=== PATIENT | female | born 1960 | race Caucasian/White ===

== ENCOUNTER 2021-02-06 15:24 | Emergency (ER) | payer BC, OTHER ==
[2021-02-06 15:36] VITALS: BP 120/72; PULSE 64; TEMP 98.4; BMI 25.6
== END 2021-02-06 16:41 | disposition home or self-care (01) ==
LOC: JERFT 15:24
PROC: 0HQFXZZ Repair Right Hand Skin, External Approach (ICD-10-PCS; principal; 2021-02-06)
DX: S61.210A Laceration without foreign body of right index finger without damage to nail, initial encounter (principal); W26.8XXA Contact with other sharp object(s), not elsewhere classified, initial encounter
CPT/HCPCS: 12001-25; 99282-25

== ENCOUNTER 2024-03-17 04:07 | Day surgery (SDC) | payer OTHER ==
[2024-02-29 12:58] VITALS: BMI 25.6
[2024-03-17] MEDS ORDERED: PROPOFOL 20 ML ONE (11:01)
[2024-03-17] MEDS ORDERED: ROCURONIUM BROMIDE 50 MG/5 ML SYRINGE ONE (11:02)
[2024-03-17] MEDS ORDERED: MIDAZOLAM HCL 2 MG/2 ML SINGLE DOSE VIAL ONE (11:03)
[2024-03-17] MEDS ORDERED: ONDANSETRON 4 MG/2 ML VIAL ONE ×2 (11:05→13:32)
[2024-03-17] MEDS ORDERED: KETOROLAC TROMETHAMINE 30 MG/1 ML VIAL ONE (11:05)
[2024-03-17] MEDS ORDERED: DEXAMETHASONE SOD PHOSPHATE 4 MG/1 ML VIAL ONE (11:05)
[2024-03-17] MEDS: ceFAZolin SODIUM 1 GM VIAL IVPB ONE (11:38)
[2024-03-17] MEDS ORDERED: GLYCOPYRROLATE 0.2 MG/1 ML VIAL ONE (13:08)
[2024-03-17] MEDS ORDERED: NEOSTIGMINE METHYLSULFATE 0.5 MG/1 ML - 10 ML MDV ONE (13:08)
[2024-03-17] MEDS ORDERED: SUGAMMADEX SODIUM 200 MG/2 ML VIAL ONE (14:32)
[2024-03-17] MEDS ORDERED: ONDANSETRON 4 MG/2 ML VIAL IVPUSH PRN (14:46)
[2024-03-17] MEDS ORDERED: oxyCODONE HCL 5 MG TABLET PO PRN (14:54)
[2024-03-17] MEDS: SODIUM CHLORIDE 1,000 ML IV SCH (15:18)
[2024-03-17] MEDS: CEFAZOLIN SODIUM 2 GM in DEXTROSE 5%-WATER 100 ML IVPB ONE (15:18)
[2024-03-17] MEDS: IBUPROFEN 600 MG TABLET (FP) PO PRN (19:11)
[2024-03-17 19:27] LABS: HEMOGLOBIN 12.4 GM/dL (10.7-15.3); MCH 27.9 pg (25.7-33.7); MCHC 32.6 g/dl (32.0-36.0); MEAN CELL VOLUME 85.6 fl (80-96); MEAN PLT VOLUME 7.8 fl (7.5-11.1); PLATELET COUNT 312 10^3/uL (134-434); RBC 4.44 M/mm3 (3.60-5.2); RDW 15.9 % (11.6-15.6)
[2024-03-17] MEDS: SODIUM CHLORIDE 0.9% 500 ML INFUS.BAG IV ONE (19:57)
[2024-03-17] MEDS: LACTATED RINGERS SOLUTION 1,000 ML IV SCH (19:58)
[2024-03-17 20:31] LABS: ANISOCYTOSIS 1+; MACROCYTOSIS 0
[2024-03-17] MEDS: CEFAZOLIN 1 GM in DEXTROSE 5%-WATER - 50 ML IVPB ONE (22:11)
[2024-03-17] MEDS: ACETAMINOPHEN 325 MG TABLET (FP) PO PRN (22:24)
[2024-03-18 05:57] VITALS: PULSE 67
[2024-03-18 07:24] LABS: BASO % 0.1 % (0-2.0); HEMATOCRIT 35.4 % (32.4-45.2); HEMOGLOBIN 11.5 GM/dL (10.7-15.3); LYMPH % 12.2 % (8-40); MCH 28.1 pg (25.7-33.7); MCHC 32.3 g/dl (32.0-36.0); MEAN CELL VOLUME 86.9 fl (80-96); MEAN PLT VOLUME 8.2 fl (7.5-11.1); MONO % 5.9 % (3.8-10.2); NEUT % 81.8 % (42.8-82.8); PLATELET COUNT 287 10^3/uL (134-434); RBC 4.08 M/mm3 (3.60-5.2); RDW 15.4 % (11.6-15.6); WHITE BLOOD COUNT 14.3 K/mm3 (4.0-10.0)
[2024-03-18 16:31] VITALS: BP 119/72; RESP 17; TEMP 98.3
== END 2024-03-18 14:15 | disposition home or self-care (01) ==
LOC: UNDOADMIN 04:07 → J2C 04:07 → JASUSAT 04:07 → EDSTATUS 08:00 → J3W 17:50 → JASUSAT 03-18 14:15
PROVIDERS: ATTEND Student in an Organized Health Care Education/Training Program
PROC: 0UT7FZZ Resection of Bilateral Fallopian Tubes, Via Natural or Artificial Opening With Percutaneous Endoscopic Assistance (ICD-10-PCS; 2024-03-17)
PROC: 0UT2FZZ Resection of Bilateral Ovaries, Via Natural or Artificial Opening With Percutaneous Endoscopic Assistance (ICD-10-PCS; 2024-03-17)
PROC: 0UT9FZZ Resection of Uterus, Via Natural or Artificial Opening With Percutaneous Endoscopic Assistance (ICD-10-PCS; principal; 2024-03-17 10:30)
DX: N81.4 Uterovaginal prolapse, unspecified (principal)
CPT/HCPCS: 36415; 85025; 86850; 86900; 86901; 88305-TC; 94760